=== PATIENT | female | born 1970 | race Caucasian/White ===

== ENCOUNTER 2019-06-12 15:56 | Emergency (ER) | payer OTHER, SELFPAY ==
[2019-06-12 16:17] VITALS: BP 124/95; PULSE 80; RESP 17; TEMP 37.2; O2SAT 100
--- NOTE | 2019-06-12 16:36 | ED.GENADULT ---
HPI - General Adult General Chief complaint: Skin/Abscess/Foreign Body Stated complaint: lumps on back of head Time Seen by Provider: 06/12/19 16:18 Source: patient Mode of arrival: ambulatory Limitations: no limitations History of Present Illness HPI narrative: Patient is a 49-year-old female who presents with wounds to the posterior scalp that have been present now for the last several days patient in the past is attempted to use creams with no improvement patient is unsure as to the etiology of the symptoms. Patient notes she also may have a urinary tract infection was recently treated and continues to have some discomfort in the suprapubic region. Patient denies any fever chills nausea vomiting or URI symptoms Related Data Home Medications Medication Instructions Recorded Confirmed amlodipine 06/12/19 propranolol 06/12/19 quetiapine 06/12/19 Allergies Allergy/AdvReac Type Severity Reaction Status Date / Time lisinopril Allergy Unknown Verified 06/12/19 16:23 Review of Systems Review of Systems: All systems reviewed & are unremarkable except as noted in HPI and below PMFSH Past Medical History Medical History (Updated 06/12/19 @ 16:41 by Prince Baum PA-C) Hypertension Surgical History Surgical History (Updated 06/12/19 @ 16:39 by Prince Baum PA-C) History of implantable cardioverter-defibrillator (ICD) placement Social History Social History Smoking status: Never smoker Gender identity (if verbalized by the patient): Female Exam Narrative: Exam Narrative: GENERAL: Well-appearing, well-nourished, and in no acute distress. HEAD: Normocephalic, atraumatic. EYES: PERRLA and EOMI. ENT: Nares clear, no rhinorrhea or epistaxis. Mucous membranes moist. CHEST: Clear to auscultation. No respiratory distress. No wheezes rales or rhonchi HEART: Regular rate and rhythm. No murmur heard. EXTREMITIES: Normal range of motion. No edema. SKIN: Warm, dry, 2 healing wounds to the posterior scalp nonfluctuant no erythema NEURO: No focal deficits. Alert and oriented x3. PSYCH: Normal mood and affect. Course Course Emergency Course: Patient in the room in no distress aware of case findings treatment plan and diagnosis Vital Signs Vital signs: Vital Signs Temperature 99 F 06/12/19 16:17 Pulse Rate 80 06/12/19 16:17 Respiratory Rate 17 06/12/19 16:17 Blood Pressure 124/95 H 06/12/19 16:17 Pulse Oximetry 100 06/12/19 16:17 Temperature 99 F 06/12/19 16:17 Pulse Rate 80 06/12/19 16:17 Respiratory Rate 17 06/12/19 16:17 Blood Pressure 124/95 H 06/12/19 16:17 Pulse Oximetry 100 06/12/19 16:17 Medical Decision Making MDM Narrative Medical decision making narrative: Patient aware of case findings treatment plan and diagnosis afebrile nontoxic-appearing no distress felt appropriate for outpatient reevaluation Vital Signs Vital Signs: Vital Signs Temperature 99 F 06/12/19 16:17 Pulse Rate 80 06/12/19 16:17 Respiratory Rate 17 06/12/19 16:17 Blood Pressure 124/95 H 06/12/19 16:17 Pulse Oximetry 100 06/12/19 16:17 Temperature 99 F 06/12/19 16:17 Pulse Rate 80 06/12/19 16:17 Respiratory Rate 17 06/12/19 16:17 Blood Pressure 124/95 H 06/12/19 16:17 Pulse Oximetry 100 06/12/19 16:17 Lab Data Labs: Lab Results 06/12/19 Range/Units 16:53 Urine Color Yellow (Yellow) Urine Appearance Clear (Clear) Urine pH 5.0 (5.0-9.0) Ur Specific [place] 1.026 (1.001-1.035) Urine Protein 1+ H (Negative) mg/dL Urine Glucose (UA) Negative (Negative) mg/dL Urine Ketones Negative (Negative) mg/dL Ur Blood (Man) Negative (Negative) Urine Nitrate Negative (Negative) Urine Bilirubin Negative (Negative) Urine Urobilinogen Negative (<2.0) mg/dL Leukocyte Esterase Rfl Negative (Negative) SANNA/UL Urine RBC 0-2 (0-2) /hpf Urine WBC 0-3
[2019-06-12 17:07] LABS: Add Urine Microscopic? YES; Appearance Urine Clear (Clear); Bacteria Urine Trace /hpf; Bilirubin Urine Negative (Negative); Blood Urine Negative (Negative); Color Urine Yellow (Yellow); Glucose Urine UA Negative (Negative); Ketones Urine Negative (Negative); Leukocyte Esterase Ur Negative LEU/UL (Negative); Mucus Urine Heavy /lpf; Nitrate Urine Negative (Negative); Protein Urine 1+ mg/dL (Negative); RBC Urine 0-2 /hpf (0-2); Specific Grav Ur 1.026 (1.001-1.035); Squamous Epithelial Cell Urine Many /hpf (Few); Urobilinogen Urine Negative mg/dL (<2.0); WBC Urine 0-3 /hpf
== END 2019-06-12 18:16 | disposition home or self-care (01) ==
PROVIDERS: Emergency Medicine Emergency Medical Services; Emergency Provider Emergency Medicine; PCP Internal Medicine
DX: S00.00XA Unspecified superficial injury of scalp, initial encounter (principal); I10 Essential (primary) hypertension; Z95.810 Presence of automatic (implantable) cardiac defibrillator; X58.XXXA Exposure to other specified factors, initial encounter
CPT/HCPCS: 81001; 99283

== ENCOUNTER 2019-08-12 12:11 | Outpatient (CLI) | payer MEDICAID, SELFPAY ==
--- NOTE | ~2019-08-12 | XR_ITS ---
EXAMINATION: XR lumbar spine 2-3V DATE: 08/12/2019 13:03 INDICATION: Back pain TECHNIQUE: Anteroposterior and lateral views of the lumbar spine, and cone-down lateral view of the l umbosacral junction were obtained. COMPARISON: 07/10/2009 FINDINGS: Lumbar dextroscoliosis is noted. There is no fracture. There is chronic moderate loss of in tervertebral disc space height throughout the lumbar spine. The vertebral body heights are maintained . Degenerative osteophytes project from the anterior endplates of multiple vertebral bodies. There is moderate facet osteoarthritis. IMPRESSION: 1. Lumbar dextroscoliosis and moderate spondylosis without acute findings. Reviewed, dictated and finalized at location A.
--- NOTE | ~2019-08-12 | XR_ITS ---
EXAMINATION: XR chest 2V DATE: 08/12/2019 13:03 INDICATION: Family history of lung cancer TECHNIQUE: PA and lateral views of the chest are obtained. COMPARISON: 10/02/2009 FINDINGS: The lungs are free of acute opacities. There is no pleural effusion or pneumothorax. The ca rdiomediastinal silhouette is normal. There has been interval insertion of a dual lead pacemaker into the left chest wall which ends with its leads in expected location. There is mild thoracic spondylos is. An old right ninth rib fracture is noted. IMPRESSION: 1. No acute cardiopulmonary abnormality. Reviewed, dictated and finalized at location A.
[2019-08-12 13:05] LABS: Hematocrit 32.4 % (37.0-47.0); Hemoglobin 10.4 g/dL (12.0-15.0); Mean Corpuscular HGB Conc 32.1 g/dl (32-36); Mean Corpuscular Hemoglobin 24.9 pg (26-34); Mean Corpuscular Volume 77.5 fl (80-100); Mean Platelet Volume 9.5 fl (7.4-10.4); Platelet Count Result 390 k/mm3 (150-375); Red Blood Count 4.18 M/mm3 (4.2-5.4); Red Cell Distribution Width 15.6 % (11.5-14.5); White Blood Count 10.3 K/mm3 (4.5-10.0)
[2019-08-12 13:16] LABS: Blood Urea Nitrogen 13 mg/dL (7-17); Calcium 8.4 mg/dL (8.4-10.2); Carbon Dioxide 31 mmol/L (22-30); Chloride 99 mmol/L (98-107); Estimated Glomerular Filt Rate > 60; Glucose 89 mg/dL (65-105); Potassium 3.6 mmol/L (3.4-5.0); Sodium 138 mmol/L (137-145)
== END 2019-08-12 12:12 | disposition home or self-care (01) ==
PROVIDERS: PCP Emergency Medicine; Visit Provider Emergency Medicine
DX: N28.9 Disorder of kidney and ureter, unspecified (principal); M54.5 Low back pain; Z80.1 Family history of malignant neoplasm of trachea, bronchus and lung; M41.86 Other forms of scoliosis, lumbar region; M47.816 Spondylosis without myelopathy or radiculopathy, lumbar region
CPT/HCPCS: 36415; 71046; 72100; 80048; 85027

== ENCOUNTER 2019-08-25 20:17 | Emergency (ER) | payer MEDICAID, SELFPAY ==
--- NOTE | ~2019-08-25 | CT_ITS ---
EXAMINATION: CT abdomen pelvis wo con EXAM DATE: 08/26/2019 08:18 INDICATION: Right flank pain. TECHNIQUE: Spiral CT of the abdomen and pelvis was performed without contrast. Axial, coronal and sag ittal images were reviewed. The dose-length product (DLP) for this examination was 303.72 mGy-cm. T he exposure was tailored according to patient size (auto mA exposure control), and iterative reconstr uction (ASIR) was used as additional dose reduction technique. There is no prior study for compariso n. FINDINGS: There is right renal cyst measuring 5 cm. There is no nephrolithiasis or hydronephrosis. The uterus is retroverted. The bladder is unremarkable. The liver, spleen, adrenal glands and pancr eas are unremarkable. Gallbladder is unremarkable. No biliary obstruction. There is no retroperito luis or pelvic lymphadenopathy. The appendix is normal. The stomach and small bowel are unremarkable. There is moderate amount of c olonic stool. No free intraperitoneal gas. Pacemaker/AICD. The lung bases are unremarkable. Mod erate amount of bilateral sacroiliac sclerosis, probably chronic symmetric sacroiliitis. IMPRESSION: 1. No nephrolithiasis, hydronephrosis or acute intra-abdominal findings. 2. Probable chronic bilateral sacroiliitis. 3. Moderate colonic stool. Reviewed, dictated and finalized at location A.
--- NOTE | ~2019-08-25 | XR_ITS ---
EXAMINATION: XR abdomen/kub 1V EXAM DATE: 08/26/2019 08:12 INDICATION: Right flank pain. TECHNIQUE: Frontal projection of the upper abdomen, frontal projection lower abdomen/pelvis for inter pretation. There is no prior study for comparison. FINDINGS: There is moderate amount of colonic stool and gas. No small bowel dilation, nonobstructiv e bowel gas pattern. There are no suspicious calcifications identified. There is no organomegaly suspected. There is moderate disc disease L2-3 and L3-4 with mild lumbar dextrocurvature. Lung base s unremarkable. Cardiac pacemaker/AICD leads. IMPRESSION: Moderate amount of colonic stool. Reviewed, dictated and finalized at location A.
[2019-08-25 20:20] VITALS: BP 149/90; PULSE 70; RESP 14; TEMP 37.2; O2SAT 100
--- NOTE | 2019-08-25 20:27 | ED.PSYCH ---
HPI - Psych General Chief Complaint: Psychiatric Symptoms <Edson Archibald MD - Last Filed: 08/27/19 02:26> Stated Complaint: SI, METH <Edson Archibald MD - Last Filed: 08/27/19 02:26> Time Seen by Provider: 08/26/19 07:28 <Edson Archibald MD - Last Filed: 08/27/19 02:26> History of Present Illness HPI Narrative: She reports that she is depressed and suicidal due to her drug addication and feeling that she hurts other people. She plans to overdose on her medications. She reports a previous attempt by hanging. <Edson Archibald MD - Last Filed: 08/27/19 02:26> Related Data Home Medications: Home Medications Medication Instructions Recorded Confirmed amlodipine 06/12/19 propranolol 06/12/19 <Edson Archibald MD - Last Filed: 08/27/19 02:26> Allergies/Adverse Reactions: Allergies Allergy/AdvReac Type Severity Reaction Status Date / Time lisinopril Allergy Unknown Verified 08/25/19 23:24 <Edson Archibald MD - Last Filed: 08/27/19 02:26> Review of Systems Review of Systems: All systems reviewed & are unremarkable except as noted in HPI and below <Edson Archibald MD - Last Filed: 08/27/19 02:26> Cardiovascular: Cardiovascular: Denies chest pain <Edson Archibald MD - Last Filed: 08/27/19 02:26> Genitourinary: Genitourinary: Denies dysuria <Edson Archibald MD - Last Filed: 08/27/19 02:26> Musculoskeletal: Musculoskeletal: Reports back pain <Edson Archibald MD - Last Filed: 08/27/19 02:26> Psychiatric: Psychiatric: Denies homicidal ideation and Reports suicidal ideation <Edson Archibald MD - Last Filed: 08/27/19 02:26> PMFSH Past Medical History Medical History: Medical History Bradycardia Depression Hypertension Trigeminy <Edson Archibald MD - Last Filed: 08/27/19 02:26> Surgical History Surgical History: Surgical History History of implantable cardioverter-defibrillator (ICD) placement <Edson Archibald MD - Last Filed: 08/27/19 02:26> Family History Family History: Family History Unknown Diabetes mellitus Heart disease Hypertension Cancer Nervous disorder <Edson Archibald MD - Last Filed: 08/27/19 02:26> Social History Social History: Social History Smoking status: Never smoker Alcohol intake: current Substance use type: marijuana and methamphetamine Gender identity (if verbalized by the patient): Female <Edson Archibald MD - Last Filed: 08/27/19 02:26> Exam Const: General: no acute distress and alert <Edson Archibald MD - Last Filed: 08/27/19 02:26> Orientation/consciousness: patient oriented x3 <Edson Archibald MD - Last Filed: 08/27/19 02:26> HENMT: Head: normal to inspection <Edson Archibald MD - Last Filed: 08/27/19 02:26> Eyes: Pupils: Equal, round and reactive pupils present <Edson Archibald MD - Last Filed: 08/27/19 02:26> Resp: Effort & Inspection: normal respiratory effort <Edson Archibald MD - Last Filed: 08/27/19 02:26> Auscultation: clear to auscultation bilaterally <Edson Archibald MD - Last Filed: 08/27/19 02:26> Cardio: Rate: regular rate <Edson Archibald MD - Last Filed: 08/27/19 02:26> Rhythm: regular rhythm <Edson Archibald MD - Last Filed: 08/27/19 02:26> GI: GI Palp: Yes Soft to palpation and No Tenderness to palpation present (GI) <Edson Archibald MD - Last Filed: 08/27/19 02:26> Skin: General skin exam: normal color <Edson Archibald MD - Last Filed: 08/27/19 02:26> Neuro: General: patient oriented x3, moves all extremities, no focal motor deficits and CN's II-XI intact bilaterally <Edson Archibald MD - Last Filed: 08/27/19 02:26> Speech: lilliam
[2019-08-25 20:37] LABS: Basophils Absolute Auto 0.1 K/mm3 (0.0-0.1); Basophils Percent Auto 0.4 % (0.2-1.2); Eosinophils Absolute Auto 0.4 K/mm3 (0-0.3); Eosinophils Percent Auto 3.8 % (0-4.4); Hematocrit 36.5 % (37.0-47.0); Hemoglobin 11.7 g/dL (12.0-15.0); Immature Granulocyte Absolute 0.04 K/mm3 (0.00-0.031); Immature Granulocyte Percent A 0.4 % (0-0.5); Lymphocytes Absolute Auto 2.92 K/mm3 (0.9-3.2); Lymphocytes Percent Auto 25.6 % (18.3-44.2); Mean Corpuscular HGB Conc 32.1 g/dl (32-36); Mean Platelet Volume 9.7 fl (7.4-10.4); Monocytes Absolute Auto 0.9 K/mm3 (0.1-0.6); Monocytes Percent Auto 8.2 % (2.6-8.5); Neutrophils Percent Auto 61.6 % (45.5-73.1); Platelet Count Result 388 k/mm3 (150-375); Red Blood Count 4.68 M/mm3 (4.2-5.4); Red Cell Distribution Width 16.3 % (11.5-14.5); White Blood Count 11.4 K/mm3 (4.5-10.0)
[2019-08-25 20:49] LABS: Ethanol < 10 mg/dL (<10)
[2019-08-25 20:50] LABS: Add Urine Microscopic? YES; Appearance Urine Clear (Clear); Bilirubin Urine Negative (Negative); Blood Urine Negative (Negative); Color Urine Yellow (Yellow); Glucose Urine UA Negative (Negative); Ketones Urine Negative (Negative); Leukocyte Esterase Ur Trace LEU/UL (Negative); Mucus Urine Heavy /lpf; Nitrate Urine Negative (Negative); Protein Urine 1+ mg/dL (Negative); RBC Urine 0-2 /hpf (0-2); Squamous Epithelial Cell Urine Few /hpf (Few); Urobilinogen Urine Negative mg/dL (<2.0)
[2019-08-25 20:50] LABS: Alanine Aminotransferase 15 U/L (4-35); Albumin Level 4.1 g/dL (3.5-5.1); Alkaline Phosphatase 76 U/L (38-126); Aspartate Amino Transferase 26 U/L (14-36); Bilirubin,Total 0.2 mg/dL (0.2-1.3); Blood Urea Nitrogen 12 mg/dL (7-17); Calcium 8.5 mg/dL (8.4-10.2); Carbon Dioxide 26 mmol/L (22-30); Chloride 103 mmol/L (98-107); Estimated Glomerular Filt Rate > 60; Glucose 135 mg/dL (65-105); Potassium 3.1 mmol/L (3.4-5.0); Sodium 137 mmol/L (137-145)
[2019-08-25 21:04] LABS: Barbiturate Screen Urine Negative (Negative); Benzodiazepines Screen Urine Negative (Negative)
[2019-08-25 21:12] LABS: Cannabinoid Screen Urine Positive (Negative); Cocaine Screen Urine Negative (Negative); Methadone Screen Urine Negative (Negative); Opiate Screen Urine Negative (Negative); Phencyclidine Screen Urine Negative (Negative)
[2019-08-25 21:20] LABS: Thyroid Stimulating Hormone 0.432 uIU/mL (0.465-4.680)
[2019-08-25 21:21] LABS: Amphetamine Screen Urine Positive (Negative)
[2019-08-25] MEDS: ACETAMINOPHEN 500 MG TABLET 1000 MG PO (21:26)
[2019-08-25 21:56] VITALS: TEMP 37.2
[2019-08-26] VITALS (7 sets, daily range): BP systolic 122–135; BP diastolic 62–89; PULSE 70–82; RESP 16–20; O2SAT 99–100
--- NOTE | 2019-08-26 01:39 | PC.NURSE ---
Crisis here at this time.
--- NOTE | 2019-08-26 02:09 | PC.NURSE ---
Christina from Crisis contacted [facility] who states they have beds available. [facility] to contact this RN.
--- NOTE | 2019-08-26 03:38 | PC.NURSE ---
Report taken from MITCH Whipple. Patient resting on stretcher. Sitter at bedside.
--- NOTE | 2019-08-26 07:16 | PC.NURSE ---
Assumed pt care at this time, report given from MITCH Shearer, psych and safe room assessment done, see charting, vss, pt asking for breakfast and medication for pain in her back.
--- NOTE | 2019-08-26 07:19 | PC.NURSE ---
Spoke with ERP about pt c/o back pain and wanting breakfast. ERP verbal order for meal, and 1g po tylenol.
--- NOTE | 2019-08-26 07:20 | PC.NURSE ---
awaiting [facility] to call back with admission.
--- NOTE | 2019-08-26 07:45 | PC.NURSE ---
pt has been accepted by [facility] at this time, rep from facility states that they need a statement of medical clearance from the ED Doc before we can call report or transfer pt.
[2019-08-26] MEDS: ACETAMINOPHEN 500 MG TABLET 1000 MG PO (07:47)
--- NOTE | 2019-08-26 07:50 | PC.NURSE ---
ROSALINO CHACON INFORMED OF [facility] ACCEPTANCE, AND THAT THEY NEED A STATEMENT OF MEDICAL CLEARANCE BEFORE WE CAN TRANSFER PT.
--- NOTE | 2019-08-26 07:59 | PC.NURSE ---
LAURENCE FROM [facility] CONTACT AGAIN AT THIS TIME THAT SHE ALSO NEEDS THE VOLUNTARY ADMISSION PAPERWORK FOR THE PT FAXED TO [phone]. [facility] HAS BEEN AT PT BEDSIDE AND HAS INFORMED MYSELF AND THE BOXING TRAINER TIMOTHY THAT SHE IS WORKING THE PT UP FOR HER BACK PAIN AND WILL NOT MEDICALLY CLEAR HER UNTIL THE RESULTS RETURN.
[2019-08-26] MEDS: POTASSIUM CHLORIDE 20 MEQ TABLET 40 MEQ PO (08:28)
[2019-08-26] MEDS: KETOROLAC (*BKC) 60 MG/2 ML VIAL IM (08:28)
--- NOTE | 2019-08-26 08:36 | PC.NURSE ---
PT VOLUNTARY ADMISSION FORM SENT TO [facility] AT THIS TIME, STILL WAITING ON EDP TO GIVE STATEMENT OF MEDICAL CLEARANCE.
--- NOTE | 2019-08-26 08:49 | PC.NURSE ---
LAURENCE [facility]KS [facility] CONTACTED AT THIS TIME, ASKING ABOUT PT INFORMATION, I INFORMED HER THAT I RESENT THE VOLUNTARY FORM AND A COPY OF THE EDP NOTE STATING THAT PT IS MEDICALLY CLEARED. AWAITING TO HEAR BACK.
--- NOTE | 2019-08-26 09:32 | PC.NURSE ---
PT VOLUNTARY FORM REFAXED W/ DATE AND PT BIRTHDAY ADDED AT THE REQUEST OF LAURENCE FROM [facility].
--- NOTE | 2019-08-26 09:51 | PC.NURSE ---
LAURENCE FROM [facility] CONTACTED AT THIS TIME TO INFORM THAT SHE HAS EVERYTHING NEEDED, PT REPORT CAN BE CALLED TO [phone] AND ASK TO SPEAK WITH NABILA. REP STATES TO WAIT ABOUT 10 MINUTES BEFORE CALLING.
--- NOTE | 2019-08-26 10:10 | PC.NURSE ---
PT REPORT GIVEN TO MITCH DAHL AT [facility] AT THIS TIME. STATES THAT PT WILL BE GOING TO ROOM 5113-B. UNIT SEC KIM TO CALL EMS AT THIS TIME. DR MILLS IS ACCEPTING.
--- NOTE | 2019-08-26 10:38 | PC.NURSE ---
PT INFORMED OF PLAN TO TRANSFER, SITTER AT BEDSIDE, PT RESTING QUIETLY, UNIT SEC KIM HAS CONTACTED [facility] AT THIS TIME WHO STATES THAT THEY HAVE AN ETA FOR TRANSFER OF 1200. [facility] REFUSED THE CALL.
--- NOTE | 2019-08-26 10:56 | PC.NURSE ---
REPORT GIVEN TO MITCH BARFIELD AT BEDSIDE, PT HAS NO COMPLAINTS, SHE HAS ASSUMED PT CARE.
--- NOTE | 2019-08-26 12:49 | PC.NURSE ---
PT STATES SHE IS TIRED OF WAITING AND WILL WALK OUT OF HERE BAREFOOT SHE DOESN'T CARE . PT ALSO STATES I WANT WANT TO GO WITH MY MOM- IT IS BETTER FOR MY KIDS THAT WAY ANYWAYS .
--- NOTE | 2019-08-26 12:56 | PC.NURSE ---
patient agitated and threatening to walk out of here sitter at bedside. [facility] called and new eta of 1245 to 1300 given.
--- NOTE | 2019-08-26 14:07 | PC.NURSE ---
[facility] CONTACTED AT THIS TIME ASKING ABOUT PT STATUS, IN INFORMED THAT WE ARE STILL AWAITING TRANSPORT.
--- NOTE | 2019-08-26 19:31 | PC.NURSE ---
Not able to update TRANSFER ASSESSMENT: [facility] ARRIVED FOR PATIENT AT 1930 TO TRANSPORT TO [facility].
--- NOTE | 2019-09-02 11:12 | PC.NURSE ---
Contacted pt. 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 She was advised to come to the ED waiting room and ask for the belongings-either her or Mr. Wilson.
== END 2019-08-26 19:39 ==
PROVIDERS: Emergency Medicine; Emergency Provider General Practice; PCP Emergency Medicine
DX: R45.851 Suicidal ideations (principal); F32.9 Major depressive disorder, single episode, unspecified; I10 Essential (primary) hypertension; Z95.810 Presence of automatic (implantable) cardiac defibrillator
CPT/HCPCS: 36415; 74018; 74176; 80053; 80307; 81001; 81025; 84443; 85025; 96372; 99285; A9270; J1885

== ENCOUNTER 2019-11-29 13:00 | Outpatient (CLI) | payer OTHER, SELFPAY ==
[2019-11-29 13:35] LABS: Basophils Absolute Auto 0.1 K/mm3 (0.0-0.1); Basophils Percent Auto 0.9 % (0.2-1.2); Eosinophils Absolute Auto 0.6 K/mm3 (0-0.3); Eosinophils Percent Auto 6.4 % (0-4.4); Hematocrit 31.7 % (37.0-47.0); Hemoglobin 10.1 g/dL (12.0-15.0); Immature Granulocyte Absolute 0.04 K/mm3 (0.00-0.031); Immature Granulocyte Percent A 0.4 % (0-0.5); Lymphocytes Absolute Auto 3.08 K/mm3 (0.9-3.2); Lymphocytes Percent Auto 31.4 % (18.3-44.2); Mean Corpuscular HGB Conc 31.9 g/dl (32-36); Mean Corpuscular Hemoglobin 25.6 pg (26-34); Mean Corpuscular Volume 80.5 fl (80-100); Mean Platelet Volume 9.5 fl (7.4-10.4); Monocytes Absolute Auto 0.9 K/mm3 (0.1-0.6); Monocytes Percent Auto 9.2 % (2.6-8.5); Neutrophils Absolute Auto 5.1 K/mm3 (1.3-6.7); Neutrophils Percent Auto 51.7 % (45.5-73.1); Platelet Count Result 422 k/mm3 (150-375); Red Blood Count 3.94 M/mm3 (4.2-5.4); Red Cell Distribution Width 14.5 % (11.5-14.5); White Blood Count 9.8 K/mm3 (4.5-10.0)
[2019-11-29 13:54] LABS: Alanine Aminotransferase 13 U/L (4-35); Albumin Level 4.1 g/dL (3.5-5.1); Alkaline Phosphatase 77 U/L (38-126); Anion Gap 8 mmol/L (8-16); Aspartate Amino Transferase 24 U/L (14-36); Bilirubin,Total 0.2 mg/dL (0.2-1.3); Blood Urea Nitrogen 7 mg/dL (7-17); Calcium 8.1 mg/dL (8.4-10.2); Carbon Dioxide 26 mmol/L (22-30); Chloride 100 mmol/L (98-107); Estimated Glomerular Filt Rate > 60; Glucose 106 mg/dL (65-105); Potassium 3.9 mmol/L (3.4-5.0); Sodium 134 mmol/L (137-145)
[2019-11-29 14:50] LABS: Iron 53 ug/dL (37-170)
[2019-11-29 15:35] LABS: Folic Acid 13.3 ng/mL (2.76->20)
== END 2019-11-29 13:01 | disposition home or self-care (01) ==
LOC: ANHLAB 13:17
PROVIDERS: PCP Emergency Medicine; Visit Provider Emergency Medicine
DX: D64.9 Anemia, unspecified (principal); D72.829 Elevated white blood cell count, unspecified; N28.9 Disorder of kidney and ureter, unspecified
CPT/HCPCS: 36415; 80053; 82607; 82746; 83540; 85025

== ENCOUNTER 2020-01-09 08:23 | Outpatient (CLI) | payer OTHER, SELFPAY ==
--- NOTE | ~2020-01-09 | US_ITS ---
EXAMINATION: US thyroid EXAM DATE: 01/09/2020 09:31 INDICATION: Thyroid nodule follow-up. TECHNIQUE: Multiple grayscale and Doppler images of the thyroid were obtained (by a technologist who performed the scan) and subsequently reviewed. Individual nodules and recommendations may be reporte d in accordance with TI-RADS system as designated by the 2017 ACR White Paper TI-RADS committee. Comp virajson is made to prior examination from 07/20/2009. FINDINGS: Right thyroid lobe measures 5.0 x 2.0 x 1.7 cm, the left thyroid lobe has been resected with unremark able surgical bed. There are multiple subcentimeter right thyroid lobe nodules. No evidence of adjace nt lymphadenopathy. Largest right thyroid lobe nodule measures 1.5 x 1.1 x 0.9 cm, not appreciably changed compared to 20 10 ultrasound. The other nodules are subcentimeter in size and also not likely clinically significant . IMPRESSION: Right thyroid lobe multinodular goiter. Reviewed, dictated and finalized at location B.
[2020-01-09 10:32] LABS: Parathyroid Intact 37.3 pg/mL (7.5-53.5)
[2020-01-09 10:51] LABS: Thyroid Stimulating Hormone 0.673 uIU/mL (0.465-4.680)
[2020-01-09 11:33] LABS: Vitamin D 25 Hydroxy 34.4 ng/mL
[2020-01-14 12:52] LABS: Triiodothyronine T3 Free 2.7 pg/mL (2.3-4.2)
== END 2020-01-09 08:24 | disposition home or self-care (01) ==
LOC: ANHIMG 08:36
PROVIDERS: PCP Emergency Medicine; Visit Provider Internal Medicine Endocrinology, Diabetes & Metabolism
DX: R79.89 Other specified abnormal findings of blood chemistry (principal); Z90.09 Acquired absence of other part of head and neck; E04.2 Nontoxic multinodular goiter
CPT/HCPCS: 36415; 76536; 82306; 83970; 84439; 84443; 84481

== ENCOUNTER 2020-02-09 20:17 | Emergency (ER) | payer OTHER, SELFPAY ==
--- NOTE | ~2020-02-09 | XR_ITS ---
EXAMINATION: XR chest 2V EXAM DATE: 02/09/2020 21:31 INDICATION: Cough, fever, body aches headaches or throat. TECHNIQUE: Frontal and lateral projections of the chest obtained and reviewed. Comparison is made to prior examination from 08/12/2019. FINDINGS: There is a dual lead pacemaker/AICD seen with leads projecting over the expected locations of the right atrial appendage and right ventricle. The lungs are clear. There are no pleural effu sions. The cardiomediastinal silhouette is within normal limits. There is no pneumothorax suspected . The bones and soft tissues are unremarkable. IMPRESSION: No acute cardiopulmonary findings. Reviewed, dictated and finalized at location A. 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
[2020-02-09 20:20] VITALS: BP 108/73; PULSE 70; RESP 20; TEMP 36.9; O2SAT 98
--- NOTE | 2020-02-09 20:23 | ED.URI ---
HPI - URI/Sore Throat General Chief Complaint: Upper Respiratory Infection Stated Complaint: body aches/sore throat/headache Time Seen by Provider: 02/09/20 20:23 Source: patient and family Mode of arrival: ambulatory Limitations: no limitations History of Present Illness HPI Narrative: Patient is a 49-year-old female who presents for evaluation of right-sided ear pain, sore throat, cough. Patient reports that she has felt intermittently febrile, but denies fever currently. She reports nausea without vomiting. She denies chest or abdominal pain. She reports cough without shortness of breath. She denies leg swelling or leg pain. Patient states her right ear is experiencing a sharp, aching pain that travels into her right neck and has been associated with some swollen lymph nodes on the right side of her neck. Patient states her son was sick with a cold, no known Covid exposures. She does report loss of sense of taste and smell. She denies rash. Related Data Home Medications Medication Instructions Recorded Confirmed amlodipine 06/12/19 12/23/19 ferrous sulfate 325 mg (65 mg 325 mg PO DAILY 12/23/19 12/23/19 iron) tablet gabapentin 100 mg capsule 100 mg PO Q8H cap 12/23/19 12/23/19 propranolol 40 mg tablet 40 mg PO Q12H 12/23/19 12/23/19 sertraline 25 mg tablet 25 mg PO DAILY 12/23/19 12/23/19 fluoxetine mg 02/09/20 naproxen 02/09/20 Allergies Allergy/AdvReac Type Severity Reaction Status Date / Time lisinopril Allergy Unknown Verified 02/09/20 20:25 Review of Systems Review of Systems: Narrative: CONSTITUTIONAL: Reports intermittent fever EYES: Denies visual changes, redness, or discharge. ENT: Reports rhinorrhea, congestion, sore throat and otalgia of the right ear CARDIOVASCULAR: Denies chest pain, palpitations, or edema. RESPIRATORY: Reports cough GASTROINTESTINAL: Denies abdominal pain, reports nausea. GENITOURINARY: Denies dysuria or hematuria. SKIN: Denies rash or itching. MUSCULOSKELETAL: Denies back pain, joint pain, reports myalgias NEUROLOGIC: Denies headache, numbness, reports feeling mildly weak. [facility] Past Medical History Medical History Anxiety Arthritis Atrial fibrillation Back pain Bradycardia Depression H/O thyroid disease Hypercalcemia Hypertension Pacemaker Trigeminy Surgical History Surgical History H/O thyroidectomy History of implantable cardioverter-defibrillator (ICD) placement Family History Family History (Updated 12/23/19 @ 13:06 by Becky Burns) Unknown Diabetes mellitus Heart disease Hypertension Cancer Nervous disorder Other Alcoholism Anxiety Arthritis Asthma Atrial fibrillation Back pain COPD (chronic obstructive pulmonary disease) Chest pain Depression Lung disease Obesity Psychiatric symptoms Substance abuse Social History Social History Smoking status: Never smoker Alcohol intake: current Substance use type: marijuana and methamphetamine Other substance usage details: PREVIOUS VAPE SMOKER, HAS SINCE QUIT Additional living arrangements comments: son lives with her Additional occupation/education comments: [employer] service Gender identity (if verbalized by the patient): Female Exam Narrative: Exam Narrative: GENERAL: Awake, alert, conversant HEAD: Normocephalic, atraumatic. EYES: PERRLA and EOMI. ENT: Nares clear, no rhinorrhea or epistaxis. Mucous membranes moist. Right tympanic membrane erythematous, bulging with serous effusion. Left tympanic membrane with normal light reflex. NECK: Supple. Right-sided anterior cervical lymphadenopathy. CHEST: No respiratory distress, breathing even and non labored, lungs clear to auscultation bilaterally HEART: Regular rate, sinus rhythm ABDOMEN:Non distended, non tender EXTREMITIES: No
[2020-02-09] MEDS: ACETAMINOPHEN 500 MG TABLET 1000 MG PO (21:12)
[2020-02-09] MEDS: ONDANSETRON HCL ODT 4 MG TABLET PO (21:12)
[2020-02-09 21:25] LABS: Basophils Absolute Auto 0.1 K/mm3 (0.0-0.1); Basophils Percent Auto 0.5 % (0.2-1.2); Eosinophils Absolute Auto 0.6 K/mm3 (0-0.3); Eosinophils Percent Auto 5.9 % (0-4.4); Hematocrit 30.1 % (37.0-47.0); Hemoglobin 9.9 g/dL (12.0-15.0); Immature Granulocyte Absolute 0.03 K/mm3 (0.00-0.031); Immature Granulocyte Percent A 0.3 % (0-0.5); Lymphocytes Absolute Auto 3.06 K/mm3 (0.9-3.2); Lymphocytes Percent Auto 31.5 % (18.3-44.2); Mean Corpuscular HGB Conc 32.9 g/dl (32-36); Mean Corpuscular Hemoglobin 26.7 pg (26-34); Mean Corpuscular Volume 81.1 fl (80-100); Mean Platelet Volume 9.4 fl (7.4-10.4); Monocytes Percent Auto 10.2 % (2.6-8.5); Neutrophils Percent Auto 51.6 % (45.5-73.1); Platelet Count Result 328 k/mm3 (150-375); Red Blood Count 3.71 M/mm3 (4.2-5.4); Red Cell Distribution Width 15.9 % (11.5-14.5); White Blood Count 9.7 K/mm3 (4.5-10.0)
[2020-02-09 21:37] LABS: Alanine Aminotransferase 12 U/L (4-35); Albumin Level 3.6 g/dL (3.5-5.1); Alkaline Phosphatase 78 U/L (38-126); Anion Gap 6 mmol/L (8-16); Aspartate Amino Transferase 20 U/L (14-36); Bilirubin,Total 0.2 mg/dL (0.2-1.3); Blood Urea Nitrogen 20 mg/dL (7-17); Calcium 8.4 mg/dL (8.4-10.2); Carbon Dioxide 28 mmol/L (22-30); Chloride 102 mmol/L (98-107); Estimated CRCL calculation 68 ml/min; Estimated Glomerular Filt Rate > 60; Glucose 115 mg/dL (65-105); Potassium 3.6 mmol/L (3.4-5.0); Sodium 136 mmol/L (137-145)
[2020-02-09 22:17] VITALS: BP 114/75; PULSE 68; RESP 18; O2SAT 99
[2020-02-09 22:25] VITALS: BP 119/81; PULSE 76; RESP 18; O2SAT 99
[2020-02-10 20:39] LABS: SARS-CoV-2 RNA PCR Negative
== END 2020-02-09 22:28 | disposition home or self-care (01) ==
LOC: ANHED 21:11
PROVIDERS: Emergency Provider Emergency Medicine; PCP Emergency Medicine
DX: J06.9 Acute upper respiratory infection, unspecified (principal); H66.001 Acute suppurative otitis media without spontaneous rupture of ear drum, right ear; B00.1 Herpesviral vesicular dermatitis; Z20.828 Contact with and (suspected) exposure to other viral communicable diseases; F41.9 Anxiety disorder, unspecified; M19.90 Unspecified osteoarthritis, unspecified site; I48.91 Unspecified atrial fibrillation; I10 Essential (primary) hypertension; E89.0 Postprocedural hypothyroidism; Z95.810 Presence of automatic (implantable) cardiac defibrillator; Z87.891 Personal history of nicotine dependence
CPT/HCPCS: 36415; 71046; 80053; 85025; 87081; 87635; 87804; 87880; 99283; A9270; C9803; U0003

== ENCOUNTER 2020-06-16 14:13 | Outpatient (CLI) | payer OTHER, SELFPAY ==
--- NOTE | 2020-06-16 | ECG_ITS ---
Measurements Intervals [place] Rate: 70 P: -67 MD: 281 QRS: -17 QRSD: 105 T: 64 QT: 443 QTc: 478 Interpretive Statements ELECTRONIC ATRIAL PACEMAKER BASELINE ARTIFACT- I, III, AVR, AVL ATYPICAL ECG Electronically Signed On 06-16-2020 15:30:50 CDT by Yash Pandya D.O.
[2020-06-16 14:49] LABS: Hematocrit 38.2 % (37.0-47.0); Hemoglobin 12.4 g/dL (12.0-15.0)
== END 2020-06-16 14:14 | disposition home or self-care (01) ==
LOC: ANHLAB 14:15
PROVIDERS: PCP Emergency Medicine; Visit Provider Anesthesiology
DX: D64.9 Anemia, unspecified (principal); Z01.818 Encounter for other preprocedural examination
CPT/HCPCS: 36415; 85014; 85018; 93005

== ENCOUNTER → 2020-06-20 00:28 | Outpatient (CLI) | payer OTHER, SELFPAY ==
[2020-06-20 19:13] LABS: SARS-CoV-2 RNA PCR Negative
== END ==
PROVIDERS: Visit Provider Obstetrics & Gynecology
DX: Z01.812 Encounter for preprocedural laboratory examination (principal); Z20.822 Contact with and (suspected) exposure to COVID-19
CPT/HCPCS: C9803; U0003; U0005

== ENCOUNTER 2020-06-23 01:44 | Day surgery (SDC) | payer OTHER, SELFPAY ==
[2020-06-15 13:58] VITALS: BMI 27.8
[2020-06-23 09:00] VITALS: BP 119/79; PULSE 70; RESP 18; TEMP 36.8; O2SAT 99
[2020-06-23] MEDS: ACETAMINOPHEN 500 MG TABLET 1000 MG PO (09:30)
[2020-06-23] MEDS: LACTATED RINGERS 1,000 ML 30 ML IV CONT (09:30)
--- NOTE | 2020-06-23 09:57 | WPDANESEPPF ---
Anes - Initial Pre Proc Eval Procedure: Operation Date: 06/23/20 11:00 Proposed Procedures p Hysteroscopy With Endometrial Joy Ablation - Leda Trinh MD Date/Time: 06/23/20 09:57 Surgeon: Leda Trinh MD Pre Op Diagnosis: menorrhagia Patient Data Age: 50 Gender: F Height: 5 ft 8 in Weight: 80.5 kg Last Vital Signs Temp 36.8 C 06/23/20 09:00 Pulse 70 06/23/20 09:00 Resp 18 06/23/20 09:00 BP 119/79 06/23/20 09:00 Pulse Ox 99 06/23/20 09:00 Allergies Allergy/AdvReac Type Severity Reaction Status Date / Time lisinopril Allergy Severe Swelling Verified 06/23/20 09:30 of Lip/Tongue/Throat latex Allergy Intermediate Rash Verified 06/23/20 09:30 Home Medications Medication Instructions Recorded Confirmed Type amlodipine 10 mg PO DAILY 06/12/19 06/23/20 History ferrous sulfate 325 mg (65 mg 325 mg PO DAILY 12/23/19 06/23/20 History iron) tablet gabapentin 100 mg capsule 100 mg PO Q8H cap 12/23/19 06/23/20 History fluoxetine 40 mg PO DAILY 02/09/20 06/23/20 History acebutolol 200 mg PO BID 06/15/20 06/23/20 History buspirone 10 mg PO BID 06/15/20 06/23/20 History cholecalciferol (vitamin D3) 50,000 unit PO WEEKLY 06/15/20 06/23/20 History [Vitamin D3] ibuprofen 600 mg PO BID 06/15/20 06/23/20 History risperidone 1 mg PO HS 06/15/20 06/23/20 History rosuvastatin 20 mg PO DAILY 06/15/20 06/23/20 History Patient hx anesthesia problems: none Family hx anesthesia problems: none PMFSH Past Medical History Medical History Anxiety Arthritis Atrial fibrillation Back pain Bradycardia Depression H/O thyroid disease Hypercalcemia Hypertension Pacemaker Trigeminy Surgical History Surgical History H/O thyroidectomy History of implantable cardioverter-defibrillator (ICD) placement Family History Family History Unknown Diabetes mellitus Heart disease Hypertension Cancer Nervous disorder Other Alcoholism Anxiety Arthritis Asthma Atrial fibrillation Back pain COPD (chronic obstructive pulmonary disease) Chest pain Depression Lung disease Obesity Psychiatric symptoms Substance abuse Social History Social History Years smoked: 20 Smoking status: Never smoker Second hand tobacco smoke exposure: No Alcohol intake: never Substance use: current Substance use type: marijuana Other substance usage details: SMOKES DAILY MARIJUANA Last use: TODAY Living arrangements: alone Additional living arrangements comments: son lives with her Additional occupation/education comments: [employer] service Gender identity (if verbalized by the patient): Female Spiritual care concerns: No Anes - Eval Final PreProcedure Day of Procedure 06/23/20 09:57 Patient weight: overweight Heart: regular rate and rhythm (paced) Lungs: clear to auscultation Airway: Mallampati scale class II and special considerations poor dentition Neurological: alert and oriented Last oral intake: >/= 8 hours ASA classification: III Emergent: no Anesthetic plan: proceed Anesthesia type and monitoring: general GIVS and standard monitoring Informed Consent: The patient's anesthetic plan and its attendant risks and benefits were discussed with the patient/family/POA. Questions were solicited and answers provided to the satisfaction of the patient/family/POA.
--- NOTE | 2020-06-23 10:25 | WPDHPUPDATE1 ---
History and Physical Update Update Date/Time: 06/23/20 10:25 History and Physical has been reviewed, including an updated exam of the patient. There are NO changes in the patient's condition. Risks, benefits, and alternatives have been discussed and questions answered. Patient agrees to proceed with procedure.
[2020-06-23 11:12] VITALS: BP 98/80; PULSE 70; RESP 12; O2SAT 98
--- NOTE | 2020-06-23 11:15 | PM.PROC ---
Procedure Note - Detailed Date of procedure: 06/23/20 Pre-op diagnosis: menorrhagia Post-op diagnosis: same Procedure performed: Hysteroscopy D&C, endometrial ablation Description of procedure: The patient was taken the operating room. She has prepped and draped in the dorsal lithotomy position. Speculum was placed the vagina. The cervix grasped with a tenaculum. The cervix was injected at 3 and 9:00 a.m. with 1% lidocaine. The hysteroscope was inserted the intrauterine cavity through the cervix. The above findings were noted. The hysteroscope and uterine sound were used to calculate endometrial cavity length. The endometrial cavity length was entered into the device hand piece. The endometrial cavity was curettaged thoroughly with a medium-size curette. All surfaces were curettaged. The sample was sent to pathology. The device was placed in the intrauterine cavity and the array was expanded. The balloon cuff was inflated. The power and safety checks were initiated. Never completed the array was collapsed and the balloon cuff was collapsed. The device was withdrawn. The hysteroscope was inserted back into the intrauterine cavity and well desiccated endometrial cavity was observed. The speculum was removed. The tenaculum was removed. The patient tolerated procedure well. She is take covering stable condition. Anesthesia: MAC Surgeon: Leda Trinh MD Estimated blood loss (mL): 15 Drains: No Packing: No Pathology: yes Complications: No immediate complications Condition: stable Disposition: PACU Findings: Normal appearing vulva vagina and cervix., normal-appearing intrauterine cavity.
[2020-06-23 11:40] VITALS: BP 130/85; PULSE 70; RESP 14
[2020-06-23 11:55] VITALS: BP 140/80; PULSE 70; RESP 14
== END 2020-06-23 12:01 | disposition home or self-care (01) ==
PROVIDERS: Visit Provider Obstetrics & Gynecology
PROC: 0U5B8ZZ Destruction of Endometrium, Via Natural or Artificial Opening Endoscopic (ICD-10-PCS; CPT 58563; principal; 2020-06-23 11:00)
DX: N92.0 Excessive and frequent menstruation with regular cycle (principal); I10 Essential (primary) hypertension; I48.91 Unspecified atrial fibrillation; F41.8 Other specified anxiety disorders; E89.0 Postprocedural hypothyroidism; Z95.810 Presence of automatic (implantable) cardiac defibrillator; F12.90 Cannabis use, unspecified, uncomplicated
CPT/HCPCS: 58563; A9270; J1100; J2250; J2405; J2704; J3010; J7030; J7120

== ENCOUNTER 2020-07-28 14:46 | Outpatient (CLI) | payer OTHER, SELFPAY ==
[2020-07-28 16:58] LABS: Anion Gap 6 mmol/L (8-16); Blood Urea Nitrogen 15 mg/dL (7-17); Calcium 8.2 mg/dL (8.4-10.2); Carbon Dioxide 28 mmol/L (22-30); Chloride 104 mmol/L (98-107); Estimated Glomerular Filt Rate > 60; Glucose 95 mg/dL (65-105); Potassium 3.9 mmol/L (3.4-5.0); Sodium 138 mmol/L (137-145)
[2020-07-28 17:13] LABS: Parathyroid Intact 14.7 pg/mL (7.5-53.5)
[2020-07-28 17:17] LABS: Vitamin D 25 Hydroxy 40.4 ng/mL
== END 2020-07-28 14:47 | disposition home or self-care (01) ==
LOC: ANHWCLAB 14:49
PROVIDERS: Visit Provider Internal Medicine Endocrinology, Diabetes & Metabolism
DX: E04.9 Nontoxic goiter, unspecified (principal); R79.89 Other specified abnormal findings of blood chemistry; Z90.09 Acquired absence of other part of head and neck
CPT/HCPCS: 36415; 80048; 82306; 83970